=== PATIENT | female | born 1960 | race Caucasian/White ===

== ENCOUNTER 2022-06-03 10:07 | Observation (INO) | payer BC ==
[~2022-06-03] VITALS: Ht 165.1 cm; Wt 136.1 kg
[2022-06-03 12:02] VITALS: BP 164/92
[2022-06-03 12:54] VITALS: BP 164/92
[2022-06-03 13:05] VITALS: BP 164/92
[2022-06-03] MEDS ORDERED: ASPIRIN 81 MG CHEW TAB PO ONE ×2 (13:15)
[2022-06-03] MEDS ORDERED: METOPROLOL SUCC50 MG PO (13:34)
[2022-06-03] MEDS ORDERED: SERTRALINE HCL50 MG PO (13:34)
[2022-06-03] MEDS ORDERED: DIOVAN80 MG PO (13:34)
[2022-06-03] MEDS ORDERED: TRULICITY1.5 MG/0.5 SC (13:34)
[2022-06-03] MEDS ORDERED: VITAMIN C1000 MG PO (13:34)
[2022-06-03] MEDS ORDERED: MULTI-VITAMIN1 EACH PO (13:34)
[2022-06-03] MEDS ORDERED: LEVOTHYROXINE88 MCG PO (13:34)
[2022-06-03] MEDS ORDERED: ASPIRIN81 MG PO (13:34)
[2022-06-03] MEDS ORDERED: FUROSEMIDE40 MG PO (13:34)
[2022-06-03] MEDS ORDERED: VITAMIN D3125 MCG PO (13:34)
[2022-06-03] MEDS ORDERED: TRESIBA100 UNIT/1 SC (13:34)
[2022-06-03] MEDS ORDERED: LIPITOR20 MG PO (13:34)
[2022-06-03 14:15] LABS: ALBUMIN 3.9 g/dL (3.5-5.0); ANION GAP 15.6 mmol/L (8-16); CREATININE, SERUM 1.58 mg/dL (0.57-1.11); POTASSIUM 4.6 mmol/L (3.5-5.1)
[2022-06-03 14:24] LABS: CREATINE KINASE MB 1.4 ng/mL (0-5.0)
[2022-06-03] MEDS ORDERED: DEXTROSE 50% SYRINGE 50 ML IV PRN (16:15)
[2022-06-03 16:41] VITALS: BP 139/85
[2022-06-03] MEDS ORDERED: MAGNESIUM SULFATE 2GM/50ML 50 ML IV ONE (18:00)
[2022-06-03] MEDS: INSULIN LISPRO 100 UNIT/1 ML 3ML VIAL SQ SCH ×2 (18:04→20:42)
[2022-06-03 19:21] LABS: CREATINE KINASE MB 1.4 ng/mL (0-5.0)
[2022-06-03 20:00] VITALS: BP 193/87
[2022-06-03] MEDS ORDERED: ATORVASTATIN 40 MG TAB PO SCH (21:00)
[2022-06-03] MEDS ORDERED: HYDRALAZINE HCL 20 MG/ML VIAL IV PRN (23:00)
[2022-06-04] VITALS: BP 153/62
[2022-06-04 04:00] VITALS: BP 176/65
[2022-06-04 05:28] LABS: BASOPHILS % 0.5 % (0.0-1.0); EOSINOPHILS # (AUTO) 0.1 (0.0-0.4); EOSINOPHILS % 1.8 % (0.0-6.0); HEMATOCRIT 34.2 % (34.2-44.1); HEMOGLOBIN 11.5 g/dL (12.0-16.0); LYMPHOCYTES # (AUTO) 1.9 (1.0-3.2); LYMPHOCYTES % 31.8 % (18.0-39.1); MEAN CORPUSCULAR HEMOGLOBIN 30.5 pg (28-32); MEAN CORPUSCULAR HGB CONC 33.6 g/dL (31-35); MEAN CORPUSCULAR VOLUME 90.7 fL (81-99); MONOCYTES # (AUTO) 0.5 (0.2-0.8); MONOCYTES % 7.9 % (4.4-11.3); NEUTROPHILS # (AUTO) 3.5 (2.1-6.9); NEUTROPHILS % 57.7 % (38.7-80.0); PLATELET COUNT 176 x10e3/uL (140-360); RED BLOOD COUNT 3.77 x10e6/uL (3.6-5.1); RED CELL DISTRIBUTION WIDTH 13.1 % (11.7-14.4)
[2022-06-04 05:50] LABS: ANION GAP 17.1 mmol/L (8-16); CALCIUM 9.2 mg/dL (8.4-10.2); CREATININE, SERUM 1.47 mg/dL (0.57-1.11); POTASSIUM 4.1 mmol/L (3.5-5.1)
[2022-06-04] MEDS ORDERED: LEVOTHYROXINE SODIUM 88 MCG TAB PO SCH (06:00)
[2022-06-04 07:44] VITALS: BP 150/63
[2022-06-04 08:15] VITALS: BP 150/63
[2022-06-04] MEDS ORDERED: VALSARTAN 80 MG TAB PO SCH (09:00)
[2022-06-04] MEDS ORDERED: METOPROLOL SUCCINATE 50 MG TAB XL PO SCH (09:00)
[2022-06-04] MEDS ORDERED: ASPIRIN 81 MG CHEW TAB PO SCH (09:00)
[2022-06-04] MEDS: INSULIN LISPRO 100 UNIT/1 ML 3ML VIAL SQ SCH ×3 (10:48→17:04)
[2022-06-04 11:26] VITALS: BP 145/66
[2022-06-04 15:10] VITALS: BP 161/73
[2022-06-04] MEDS ORDERED: ACETAMINOPHEN 325 MG TAB PO PRN (16:15)
[2022-06-04] MEDS ORDERED: LEVOTHYROXINE88 MC1 PO (18:42)
[2022-06-04] MEDS ORDERED: METOPROLOL SUCC50 MG PO (21:25)
== END 2022-06-04 19:45 | disposition home or self-care (01) ==
LOC: MED/SURG2 10:51
PROVIDERS: ADMIT Internal Medicine; ATTEND Internal Medicine
DX: I49.3 Ventricular premature depolarization (principal); R00.8 Other abnormalities of heart beat; R00.2 Palpitations; E11.22 Type 2 diabetes mellitus with diabetic chronic kidney disease; I12.9 Hypertensive chronic kidney disease with stage 1 through stage 4 chronic kidney disease, or unspecified chronic kidney disease; N18.30 Chronic kidney disease, stage 3 unspecified; I25.10 Atherosclerotic heart disease of native coronary artery without angina pectoris; Z95.1 Presence of aortocoronary bypass graft; E78.5 Hyperlipidemia, unspecified; E11.69 Type 2 diabetes mellitus with other specified complication; E03.9 Hypothyroidism, unspecified; E66.01 Morbid (severe) obesity due to excess calories; Z68.42 Body mass index [BMI] 45.0-49.9, adult; F41.9 Anxiety disorder, unspecified; I44.0 Atrioventricular block, first degree; Z79.82 Long term (current) use of aspirin; Z79.4 Long term (current) use of insulin; Z20.822 Contact with and (suspected) exposure to COVID-19
CPT/HCPCS: 0223U; 36415 ×2; 80048; 80053; 82550; 82553; 83735; 84484; 85025; 93306; G0378 ×2; J0360; J3475